=== PATIENT | female | born 1955 | race Caucasian/White ===

== ENCOUNTER 2019-09-07 16:20 | Emergency (ER) | payer OTHER, SELFPAY ==
[2019-09-07] MEDS ORDERED: SMZ./TMP. 800/160 MG TABLET ONE (17:09)
[2019-09-07] MEDS ORDERED: NA CHLORIDE 0.9% 1,000 ML ONE (17:09)
[2019-09-07] MEDS ORDERED: CLINDAMYCIN 600MG/D5W 600 MG/50 ML BAG IV ONE (17:09)
[2019-09-07 17:29] LABS: Hematocrit 42.2 % (36.0-45.0); MPV 9.6 fL (7.6-11.3); RBC Red Blood Cell Count 4.74 M/uL (3.86-4.86)
[2019-09-07 17:46] LABS: Albumin 3.8 g/dL (3.4-5.0); Bilirubin Total 1.1 mg/dL (0.2-1.0); Potassium 3.5 mmol/L (3.5-5.1); Protein, Total 8.2 g/dL (6.4-8.2)
--- NOTE | 2019-09-07 18:31 | EDPHYS ---
Physician Documentation [facility] Name: Piedad Guidry Age: 64 yrs Sex: Female : 1955 Arrival Date: 09/07/2019 Time: 16:26 Bed 28 Private MD: ED Physician Nick Murdock HPI: 09/07 18:29 This 64 yrs old Female presents to ER via Ambulatory with complaints of ma2 Shoulder infection. 18:29 Onset: The symptoms/episode began/occurred gradually, 2 day(s) ago. Severity of ma2 symptoms: At their worst the symptoms were mild in the emergency department the symptoms are unchanged have resolved. The patient has not experienced similar symptoms in the past. Historical: - Allergies: 16:39 No Known Allergies; sv - PMHx: 16:39 Hypertension; uterine cancer; sv - PSHx: 16:39 ; Tubal ligation; Back surgery X6; sv - Immunization history:: Flu vaccine status is unknown. - Social history:: Patient/guardian denies using alcohol, street drugs, The patient lives with family, Smoking status: unknown. - Family history:: not pertinent. - Ebola Screening: : No symptoms or risks identified at this time. ROS: 18:29 Constitutional: Negative for fever, chills, and weight loss. ma2 18:29 All other systems are negative. Exam: 18:29 Constitutional: This is a well developed, well nourished patient who is awake, alert, ma2 and in no acute distress. Head/Face: Normocephalic, atraumatic. Eyes: Pupils equal round and reactive to light, extra-ocular motions intact. Lids and lashes normal. Conjunctiva and sclera are non-icteric and not injected. Cornea within normal limits. Periorbital areas with no swelling, redness, or edema. ENT: Nares patent. No nasal discharge, no septal abnormalities noted. Tympanic membranes are normal and external auditory canals are clear. Oropharynx with no redness, swelling, or masses, exudates, or evidence of obstruction, uvula midline. Mucous membranes moist. Neck: Trachea midline, no thyromegaly or masses palpated, and no cervical lymphadenopathy. Supple, full range of motion without nuchal rigidity, or vertebral point tenderness. No Meningismus. Chest/axilla: Normal chest wall appearance and motion. Nontender with no deformity. No lesions are appreciated. Cardiovascular: Regular rate and rhythm with a normal S1 and S2. No gallops, murmurs, or rubs. Normal PMI, no JVD. No pulse deficits. Respiratory: Lungs have equal breath sounds bilaterally, clear to auscultation and percussion. No rales, rhonchi or wheezes noted. No increased work of breathing, no retractions or nasal flaring. Abdomen/GI: Soft, non-tender, with normal bowel sounds. No distension or tympany. No guarding or rebound. No evidence of tenderness throughout. Skin: right upper back cellulitis 2x2 cm erythema and warmth, no swelling or fluctuence or abscess Warm, dry with normal turgor. Normal color with no rashes, no lesions, and no evidence of cellulitis. MS/ Extremity: Pulses equal, no cyanosis. Neurovascular intact. Full, normal range of motion. Neuro: Awake and alert, GCS 15, oriented to person, place, time, and situation. Cranial nerves II-XII grossly intact. Motor strength 5/5 in all extremities. Sensory grossly intact. Cerebellar exam normal. Normal gait. Vital Signs: 16:39 BP 153 / 73; Pulse 105; Resp 16; Temp 98.5; Pulse Ox 100% ; Weight 110.68 kg; Height 5 sv ft. 8 in. (172.72 cm); 17:47 BP 104 / 68; Pulse 80; Resp 16; tm3 18:23 BP 133 / 63; Pulse 93; Resp 17; Pulse Ox 100% on R/A; mg2 18:52 BP 113 / 63; Pulse 89; Resp 18; Pulse Ox 98% on R/A; dm5 16:39 Body Mass Index 37.10 (110.68 kg, 172.72 cm) sv MDM: 16:54 Patient medically screened. ma2 18:29 Differential Diagnosis cellulitis no abscess. Data reviewed: vital signs, nurses notes. ma2 Counseling: I had a detailed discussion with the patient and/or guardian regarding: the historical points, exam findings, and any diagnostic results supporting the discharge/admit diagnosis, the presence of at least one elevated blood pressure reading (>120/80) during this emergency department visit, the need for outpatient follow up. Response to treatment: the patient's symptoms have markedly improved after treatment. 09/07 17:03 Order name: CBC w/o diff; Complete Time: 17:44 ct2 09/07 17:03 Order name: Blood Culture Adult (2) ma2 09/07 17:03 Order name: CMP ma2 Administered Medications: 17:33 Drug: NS 0.9% 1000 ml Route: IV; Rate: 1 bolus; Site: left antecubital; mg2 18:30 Follow up: Response: No adverse reaction; IV Status: Completed infusion; IV Intake: mg2 1000ml 17:50 Drug: Bactrim (160 mg-800 mg (DS) 1 tablet Route: PO; mg2 18:50 Follow up: Response: No adverse reaction mg2 17:51 Drug: Clindamycin 600 mg Route: IVPB; Infused Over: 30 mins; Site: left antecubital; mg2 18:30 Follow up: Response: No adverse reaction; IV Status: Completed infusion mg2 Disposition: 09/07/19 18:30 Discharged to Home. Impression: Cellulitis and acute lymphangitis of other sites - right upper back . - Condition is Stable. - Prescriptions for Clindamycin HCl 300 mg Oral Capsule - take 1 capsule by ORAL route every 6 hours for 10 days; 40 capsule. Bactrim DS 800- 160 mg Oral Tablet - take 1 tablet by ORAL route every 12 hours for 10 days; 20 tablet. Tylenol- Codeine #3 300-30 mg Oral Tablet - take 2 tablet by ORAL route every 6 hours As needed; 30 tablet. - Medication Reconciliation Form, Thank You Letter, Antibiotic Education, Prescription Opioid Use form. - Follow up: Private Physician; When: Tomorrow; Reason: Continuance of care. Signatures: Dispatcher [employer] Madison Peña RN RN Nick Murdock MD MD ct2 Vinnie Schaefer RN RN mg2 Corrections: (The following items were deleted from the chart) 18:55 18:30 09/07/2019 18:30 Discharged to Home. Impression: Cellulitis and acute mg2 lymphangitis of other sites - right upper back . Condition is Stable. Prescriptions for Clindamycin HCl 300 mg Oral Capsule - take 1 capsule by ORAL route every 6 hours for 10 days; 40 capsule, Bactrim DS 800-160 mg Oral Tablet - take 1 tablet by ORAL route every 12 hours for 10 days; 20 tablet. and Forms are Medication Reconciliation Form, Thank You Letter, Antibiotic Education, Prescription Opioid Use. Follow up: Private Physician; When: Tomorrow; Reason: Continuance of care. ma2
--- NOTE | 2019-09-07 18:31 | ER ---
Nurse's Notes [facility] Name: Piedad Guidry Age: 64 yrs Sex: Female : 1955 Arrival Date: 09/07/2019 Time: 16:26 Bed 28 Private MD: Diagnosis: Cellulitis and acute lymphangitis of other sites-right upper back Presentation: 09/07 16:38 Presenting complaint: Patient states: right shoulder abscess started 10 days ago, no sv drainage but reports fever. Transition of care: patient was not received from another setting of care. Onset of symptoms was August 28, 2019. Care prior to arrival: None. 16:38 Method Of Arrival: Ambulatory sv 16:38 Acuity: OLIVIA 3 sv 18:00 Risk Assessment: Do you want to hurt yourself or someone else? Patient reports no mg2 desire to harm self or others. Initial Sepsis Screen: Does the patient meet any 2 criteria? No. Patient's initial sepsis screen is negative. Does the patient have a suspected source of infection? No. Patient's initial sepsis screen is negative. Triage Assessment: 17:00 General: Appears in no apparent distress. comfortable, Behavior is calm, cooperative. mg2 Historical: - Allergies: 16:39 No Known Allergies; sv - PMHx: 16:39 Hypertension; uterine cancer; sv - PSHx: 16:39 ; Tubal ligation; Back surgery X6; sv - Immunization history:: Flu vaccine status is unknown. - Social history:: Patient/guardian denies using alcohol, street drugs, The patient lives with family, Smoking status: unknown. - Family history:: not pertinent. - Ebola Screening: : No symptoms or risks identified at this time. Screenin:34 Abuse screen: Denies threats or abuse. Denies injuries from another. Nutritional mg2 screening: No deficits noted. Tuberculosis screening: No symptoms or risk factors identified. Fall Risk IV access (20 points). Assessment: 17:00 General: Appears in no apparent distress. comfortable, Behavior is calm, cooperative. mg2 17:00 Pain: Denies pain. Neuro: Level of Consciousness is awake, alert, obeys commands, mg2 Oriented to person, place, time, situation. Cardiovascular: Capillary refill < 3 seconds Patient's skin is warm and dry. Respiratory: Airway is patent Respiratory effort is even, unlabored, Respiratory pattern is regular, symmetrical. GI: No signs and/or symptoms were reported involving the gastrointestinal system. : No deficits noted. EENT: No signs and/or symptoms were reported regarding the EENT system. Derm: Skin is pink, warm \T\ dry. normal, Wound noted right shoulder. Musculoskeletal: Circulation, motion, and sensation intact. Capillary refill < 3 seconds. 18:00 Reassessment: Patient appears in no apparent distress at this time. Patient and/or mg2 family updated on plan of care and expected duration. Pain level reassessed. Patient is alert, oriented x 3, equal unlabored respirations, skin warm/dry/pink. Vital Signs: 16:39 BP 153 / 73; Pulse 105; Resp 16; Temp 98.5; Pulse Ox 100% ; Weight 110.68 kg; Height 5 sv ft. 8 in. (172.72 cm); 17:47 BP 104 / 68; Pulse 80; Resp 16; tm3 18:23 BP 133 / 63; Pulse 93; Resp 17; Pulse Ox 100% on R/A; mg2 18:52 BP 113 / 63; Pulse 89; Resp 18; Pulse Ox 98% on R/A; dm5 16:39 Body Mass Index 37.10 (110.68 kg, 172.72 cm) sv ED Course: 16:26 Patient arrived in ED. mr 16:37 Arm band placed on. sv 16:39 Triage completed. sv 16:44 Vinnie Schaefer, SWATI is Primary Nurse. mg2 16:54 Nick Murdock MD is Attending Physician. ma2 17:00 Patient has correct armband on for positive identification. mg2 17:00 No provider procedures requiring assistance completed. mg2 17:15 Inserted saline lock: 22 gauge in left antecubital area, using aseptic technique. tm3 17:15 Initial lab(s) drawn, by ms, sent to lab. First set of blood cultures drawn by ms. tm3 17:45 Second set of blood cultures drawn by ms. tm3 18:15 IV discontinued, intact, bleeding controlled, No redness/swelling at site. Pressure mg2 dressing applied. Administered Medications: 17:33 Drug: NS 0.9% 1000 ml Route: IV; Rate: 1 bolus; Site: left antecubital; mg2 18:30 Follow up: Response: No adverse reaction; IV Status: Completed infusion; IV Intake: mg2 1000ml 17:50 Drug: Bactrim (160 mg-800 mg (DS) 1 tablet Route: PO; mg2 18:50 Follow up: Response: No adverse reaction mg2 17:51 Drug: Clindamycin 600 mg Route: IVPB; Infused Over: 30 mins; Site: left antecubital; mg2 18:30 Follow up: Response: No adverse reaction; IV Status: Completed infusion mg2 Intake: 18:30 IV: 1000ml; Total: 1000ml. mg2 Outcome: 18:30 Discharge ordered by MD. esparza 18:55 Patient left the ED. mg2 18:55 Discharged to home ambulatory. mg2 18:55 Condition: good 18:55 Discharge instructions given to patient, Instructed on discharge instructions, follow mg2 up and referral plans. medication usage, Demonstrated understanding of instructions, follow-up care, medications, Prescriptions given X 3. Signatures: Livan Zheng 3 Estella Hope RN RN dm5 Madison Mahajan RN RN Sharon Luevano Mohammad, MD MD ma2 Vinnie Schaefer RN RN mg2
[2019-09-08 08:38] VITALS: TEMP 98.5
[2019-09-08 08:40] VITALS: BP 113/63; O2SAT 98
== END 2019-09-07 18:55 | disposition home or self-care (01) ==
LOC: ER 16:20
DX: L03.312 Cellulitis of back [any part except buttock and flank] (principal); L03.898 Acute lymphangitis of other sites
CPT/HCPCS: 96365; 87040 ×2; 36415; 85027; 80053; 99284; J7030

== ENCOUNTER 2019-09-22 08:33 | Day surgery (SDC) | payer OTHER ==
--- NOTE | 2019-09-21 15:22 | RAD REPORT ---
EXAM DESCRIPTION: RAD - Chest Pa And Lat (2 Views) - 09/21/2019 2:45 pm CLINICAL HISTORY: preop, pending right shoulder soft tissue mass surgery COMPARISON: No comparisons TECHNIQUE: Frontal and lateral views of the chest were obtained. FINDINGS: The lungs are clear. Mild prominence of the interstitial pattern believed be baseline. He art size is normal and central vasculature is within normal limits. No pleural effusion or pneumotho rax seen. No acute bony finding noted. No aortic abnormality. IMPRESSION: No acute cardiopulmonary process.
--- NOTE | 2019-09-21 16:12 | EKG ---
Test Date: 2019-09-21 Test Time: 14:24:38 Curb Builder: EUNICE MEASUREMENT RESULTS: Intervals: Rate: 80 NV: 138 QRSD: 98 QT: 366 QTc: 422 [employer]: P: 24 NV: 138 QRS: 20 T: 44 INTERPRETIVE STATEMENTS: Normal sinus rhythm Normal ECG Compared to ECG 03/03/2016 02:18:12 No significant changes Electronically Signed On 09-21-19 16:11:32 ISOTOPE TECHNOLOGIST by Supa Ramos
[2019-09-22] MEDS ORDERED: CEFAZOLIN/SWI 1gm 1 GM/10 ML SYR ONE (08:51)
[2019-09-22] MEDS ORDERED: Ringers Lactate 1,000 ML IV ONE (08:51)
[2019-09-22] MEDS ORDERED: FENTANYL CITR 100 MCG/2 ML ONE (09:01)
[2019-09-22] MEDS ORDERED: propofoL 200 MG/20 ML VIAL IV ONE (09:01)
[2019-09-22] MEDS ORDERED: MIDAZOLAM HCL 2 MG/2 ML INJ ONE (09:02)
[2019-09-22] MEDS ORDERED: LIDOCAINE 2% MPF 5 ML VIAL ONE (09:02)
[2019-09-22] MEDS ORDERED: ONDANSETRON 4 MG/2 ML VIAL ONE (09:10)
[2019-09-22] MEDS ORDERED: EPHEDRINE SULF 50 MG/ML VIAL ONE (10:12)
[2019-09-22] MEDS ORDERED: MORPHINE 4 MG/ML SYR ONE (10:48)
[2019-09-22] MEDS ORDERED: HYDROMORPHONE HCL 1 MG/ML INJ ONE (10:59)
[2019-09-22] MEDS ORDERED: HYDROCODONE/APAP 7.5/325 MG TAB ONE (12:13)
[2019-09-22 13:44] VITALS: BP 124/50; TEMP 97.7; O2SAT 95
--- NOTE | 2019-09-22 23:19 | OP ---
Date of Procedure: 09/22/2019 Surgeon: Kane Christie MD Grain Miller Helper: JARAD Zuñiga Preoperative Diagnosis: Right shoulder mass. Postoperative Diagnosis: Right shoulder mass. Procedure: Wide excision of right shoulder mass 10 x 4 cm with layered closure. The length of closu re is 10 cm. Estimated Blood Loss: Minimal. Specimen: Right shoulder mass. Finding: As above. Anesthesia: General. Complications: None. Patient tolerated the procedure in stable condition, taken to Recovery in good general condition. Description Of Operation: Patient was brought to the OR and placed in supine position. General anes thesia was begun. Patient was placed in left lateral position, prepped and draped in the usual steri le fashion. Marcaine 0.5% was infiltrated locally for postop pain control. A 15-blade was used to m vanessa a 10 x 4 cm incision to excise this area which was read indurated and some central fluctuance. S ubcutaneous tissue was divided and we went to the healthy tissue and then a wide excision done to exc ise this entire inflamed area. Subcutaneous wound irrigated, bleeding controlled with cautery. The flaps created, 2-0 chromic used for subcutaneous tissue and 3-0 nylon used to close skin and loosely sterile dressing was applied. Patient was awakened and taken to Recovery in good general condition. Discharge Note: The patient will go to day surgery and home when stable. Disposition: Home. Condition: Stable. Discharge Instructions: Resume home medications and diet. Activity as tolerated. Remove outer dres sing in 2 days. Shower. Keep wound clean and dry. Follow up in my office in 2 weeks. Call for lo ointment. Tylenol No. 3 one tablet p.o. q.4 p.r.n. pain, Cipro 500 mg p.o. q.12. /MODL Voice ID: [id number] Report ID: [id number]
== END 2019-09-22 13:10 | disposition home or self-care (01) ==
LOC: OR 08:33
PROVIDERS: ATTEND Surgery
PROC: 0JBD0ZZ Excision of Right Upper Arm Subcutaneous Tissue and Fascia, Open Approach (ICD-10-PCS; principal; 2019-09-22 09:30)
DX: R22.31 Localized swelling, mass and lump, right upper limb (principal); I10 Essential (primary) hypertension; Z80.1 Family history of malignant neoplasm of trachea, bronchus and lung; Z80.8 Family history of malignant neoplasm of other organs or systems
CPT/HCPCS: 93005; 88304; 71046; 11406; J2704; J2250; J3010; J1170; J0690; J7120; J2405; 88305